=== PATIENT | female | born 1950 | race Caucasian/White ===

== ENCOUNTER → 2023-04-03 10:29 | Outpatient (BNVA) | payer MEDICARE, OTHER, SELFPAY | PROVIDERS: Family Provider Family Medicine; PCP Family Medicine; Referring Provider Ophthalmology; Visit Provider Specialist | DX: H49.43 Progressive external ophthalmoplegia, bilateral (principal); G72.9 Myopathy, unspecified; M48.00 Spinal stenosis, site unspecified | CPT/HCPCS: 99205 ==

== ENCOUNTER → 2023-10-03 12:17 | Outpatient (BNVA) | payer MEDICARE, OTHER, SELFPAY | PROVIDERS: Family Provider Family Medicine; PCP Family Medicine; Visit Provider Specialist | DX: R29.90 Unspecified symptoms and signs involving the nervous system (principal); G72.9 Myopathy, unspecified; H49.43 Progressive external ophthalmoplegia, bilateral | CPT/HCPCS: 99214 ==